=== PATIENT | male | born 1970 | race Caucasian/White ===

== ENCOUNTER 2022-09-11 13:05 | Outpatient (CLI) | payer BC, SELFPAY | END 2022-09-11 13:06 | disposition home or self-care (01) | PROVIDERS: PCP Family Medicine; Referring Provider Family Medicine; Visit Provider Family Medicine | DX: I10 Essential (primary) hypertension (principal); Z12.5 Encounter for screening for malignant neoplasm of prostate; Z13.6 Encounter for screening for cardiovascular disorders | CPT/HCPCS: 80048; 80061; 83690; 84153 ==

== ENCOUNTER 2022-12-06 20:52 | Outpatient (CLI) | payer BC, SELFPAY ==
--- NOTE | 2022-12-11 11:48 | W.PM.SLEEP ---
Sleep Study Details Details Interpreting Provider: Mauricio Date of Sleep Study: 12/06/22 Sleep Study Details: STUDY TYPE:? Hospital-based split night study with CPAP titration ? BMI:? 25.2 ORDERING PROVIDER:? Orquidea INDICATION:? Concerns about sleep apnea ? SLEEP SUMMARY:? Total sleep time 400.5 minutes RESPIRATORY SUMMARY:? Mean oxygen awake 97 asleep 95 minimum 80 1.5 minutes oxygen between 80 and 88% AHI 23.3, RDI 24.9, no supine REM sleep was seen. Note that the entire diagnostic portion of the study was done in the supine position. Patient was titrated to a pressure of 7 which decreased AHI to 0.8 and included supine REM sleep. PERIODIC LIMB MOVEMENTS OF SLEEP:? Pretreatment index 24.9, index with arousal 0.4 Post treatment index 15.5, index with arousal 0 CARDIAC:? Awake 82, asleep 76. No arrhythmias noted IMPRESSION:? Moderate obstructive sleep apnea with an AHI of 23.3. CPAP titration was successful at a pressure of 7 and this included supine REM stage sleep. RECOMMENDATION: Would initiate CPAP auto set at pressure 7-15. Other treatment options could potentially include dental appliance and/or airway expansion surgery.
== END 2022-12-06 20:53 | disposition home or self-care (01) ==
LOC: SLEEP 20:58
PROVIDERS: PCP Family Medicine; Visit Provider Family Medicine
DX: G47.33 Obstructive sleep apnea (adult) (pediatric) (principal)
CPT/HCPCS: 95811